=== PATIENT | male | born 1960 | race Caucasian/White ===

== ENCOUNTER 2020-04-17 08:18 | Observation (INO) ==
[2020-04-17 09:38] LABS: Basophils # 0.1 10*3/uL (0.0-0.2); Basophils % 0.7 % (0.0-0.8); Eosinophils # 0.1 10*3/uL (0.0-0.87); Eosinophils % 1.5 % (0.00-10.9); Hematocrit 42.5 VOL% (42.0-52.0); Hemoglobin 14.2 GM/DL (14.0-18.0); Immature Granulocytes % 0.4 %; Immature Granulocytes Absolute 0.03 #; Lymphocytes # 0.5 10*3/uL (1.4-4.0); Lymphocytes % 7.1 % (21.2-54.2); Mean Corpuscular HGB Conc 33.4 GM/DL (32-36); Mean Corpuscular Volume 95.1 FL (87-102); Mean Platelet Volume 10.3 FL (9.6-12.0); Neutrophils % 81.3 % (38.7-73.9); Platelet Count 267 T/CUMM (130-400); Red Blood Count 4.47 MC/CUMM (3.8-5.5); Red Cell Distribution Width 13.8 % (9.3-17.3); White Blood Count 7.6 T/CUMM (4-12)
[2020-04-17 09:58] LABS: Albumin 3.2 G/DL (3.4-5.0); Bilirubin,Total 0.5 MG/DL (0.2-1.0); Calcium 8.8 MG/DL (8.5-10.1); Osmolality,Calculated 277.7 MOS/KG (273-304)
[2020-04-17] MEDS ORDERED: MORPHINE 4 MG/1 ML VIAL IV STA ×2 (11:02→11:40)
[2020-04-17] MEDS ORDERED: SODIUM CHLORIDE 0.9% 1,000 ML IV STA (11:15)
[2020-04-17] MEDS ORDERED: THIAMINE 200 MG/2 ML VIAL IV STA (11:19)
[2020-04-17 11:29] LABS: Apearance,Urine CLEAR (Clear); Bilirubin,Urine Negative (Negative); Blood, Urine Negative (Negative); Glucose,Urine (UA) Negative (Negative); Ketones,Urine Negative (Negative); Mucus,Urine Occasional /LPF (Occasional); Nitrite,Urine Negative (Negative); Protein,Urine Negative; RBC,Urine <1 /HPF (0-4); Urine Color Yellow (Yellow); Urine Specific Gravity 1.015 (1.001-1.035); Urine Urobilinogen < 2.0 EU/DL (0.2-1.0); WBC,Urine <1 /HPF (0-6)
[2020-04-17] MEDS ORDERED: DEXTROSE 50% 25 GM/50 ML VIAL IV PRN (11:53)
[2020-04-17] MEDS ORDERED: ONDANSETRON 4 MG/2 ML VIAL IV PRN (11:53)
[2020-04-17] MEDS ORDERED: NICOTINE 21 MG/24 HR PATCH TRANSDERM PRN (11:53)
[2020-04-17] MEDS ORDERED: GLUCAGON 1 MG VIAL IM PRN (11:53)
[2020-04-17] MEDS ORDERED: cefTRIAXone 1,000 MG in SYRINGE 1 EACH IV SCH (12:30)
[2020-04-17 12:32] LABS: Risk Ratio 12.71; VLDL CHOLESTEROL 41.4 MG/DL
[2020-04-17] MEDS: MORPHINE 4 MG/1 ML VIAL IV PRN ×2 (14:40→18:25)
[2020-04-17] MEDS: LORazepam 2 MG/1 ML VIAL IV PRN (16:42)
[2020-04-17] MEDS: THIAMINE INJ 100 MG, FOLIC ACID INJ 1 MG, MULTIVITAMIN INJ 10 ML in SODIUM CHLORIDE 0.9... IV SCH (16:55)
[2020-04-17] MEDS: LACTATED RINGERS 1,000 ML IV SCH ×2 (17:22→21:07)
[2020-04-17] MEDS ORDERED: LORazepam 2 MG/1 ML VIAL IV PRN (18:39)
[2020-04-17] MEDS ORDERED: hydrALAZINE 20 MG/1 ML VIAL IV PRN (18:39)
[2020-04-17] MEDS ORDERED: diphenhydrAMINE 50 MG/1 ML VIAL IV PRN (18:40)
[2020-04-17] MEDS: PANTOPRAZOLE 40 MG VIAL IV SCH ×2 (18:43→21:39)
[2020-04-17] MEDS ORDERED: ACETAMINOPHEN 325 MG TABLET PO PRN (18:53)
[2020-04-17] MEDS: SULFAMETHOX/TRIMETHOPRIM 800-160 MG TABLET PO SCH (21:37)
[2020-04-17] MEDS: PHENYTOIN ER 100 MG CAPSULE PO SCH (21:37)
[2020-04-17] MEDS: ENOXAPARIN 40 MG/0.4 ML SYRINGE SUBCUT SCH (21:39)
[2020-04-18] MEDS: METOPROLOL TARTRATE 5 MG/5 ML VIAL IV SCH ×2 (00:37→05:46)
[2020-04-18] MEDS: LACTATED RINGERS 1,000 ML IV SCH ×2 (03:05→10:10)
[2020-04-18 05:56] LABS: Apearance,Urine CLEAR (Clear); Bilirubin,Urine Negative (Negative); Blood, Urine Negative (Negative); Glucose,Urine (UA) Negative (Negative); Ketones,Urine Negative (Negative); Mucus,Urine Occasional /LPF (Occasional); Nitrite,Urine Negative (Negative); Protein,Urine Negative; RBC,Urine <1 /HPF (0-4); Urine Color Amber (Yellow); Urine Specific Gravity 1.015 (1.001-1.035); Urine Urobilinogen < 2.0 EU/DL (0.2-1.0); WBC,Urine <1 /HPF (0-6)
[2020-04-18 06:05] LABS: Basophils # 0.1 10*3/uL (0.0-0.2); Basophils % 0.5 % (0.0-0.8); Eosinophils % 0.2 % (0.00-10.9); Hemoglobin 11.9 GM/DL (14.0-18.0); Immature Granulocytes % 0.5 %; Immature Granulocytes Absolute 0.06 #; Lymphocytes # 0.9 10*3/uL (1.4-4.0); Mean Corpuscular HGB Conc 33.1 GM/DL (32-36); Mean Platelet Volume 11.1 FL (9.6-12.0); Monocytes % 7.5 % (1.7-12.7); Neutrophils % 84.3 % (38.7-73.9); Platelet Count 225 T/CUMM (130-400); Red Blood Count 3.75 MC/CUMM (3.8-5.5); Red Cell Distribution Width 14.2 % (9.3-17.3); White Blood Count 12.6 T/CUMM (4-12)
[2020-04-18 06:32] LABS: Hypochromasia 1+; Microcytosis 1+; Platelet Estimate Adequate
[2020-04-18 06:49] LABS: Albumin 2.5 G/DL (3.4-5.0); Bilirubin,Total 1.4 MG/DL (0.2-1.0); Calcium 8.3 MG/DL (8.5-10.1); Osmolality,Calculated 274.8 MOS/KG (273-304); Total Protein 7.1 G/DL (6.4-8.3)
[2020-04-18] MEDS ORDERED: MAGNESIUM CITRATE 300 ML BOTTLE PO ONE (08:05)
[2020-04-18] MEDS: SULFAMETHOX/TRIMETHOPRIM 800-160 MG TABLET PO SCH (10:10)
[2020-04-18] MEDS: PANTOPRAZOLE 40 MG VIAL IV SCH ×2 (10:11→20:36)
[2020-04-18] MEDS: LEVOFLOXACIN INJ 750 MG in PREMIX 1 EACH IV SCH (12:09)
[2020-04-18] MEDS: METOPROLOL TARTRATE 25 MG TABLET PO SCH ×2 (12:09→20:36)
[2020-04-18] MEDS: MORPHINE 4 MG/1 ML VIAL IV PRN ×3 (12:20→22:43)
[2020-04-18] MEDS: BACITRACIN OINT 0.9 GM PACK TOP SCH (16:02)
[2020-04-18] MEDS: THIAMINE INJ 100 MG, FOLIC ACID INJ 1 MG, MULTIVITAMIN INJ 10 ML in SODIUM CHLORIDE 0.9... IV SCH (20:35)
[2020-04-18] MEDS: PHENYTOIN ER 100 MG CAPSULE PO SCH (20:36)
[2020-04-18] MEDS: ENOXAPARIN 40 MG/0.4 ML SYRINGE SUBCUT SCH (20:39)
[2020-04-19] MEDS: LORazepam 2 MG/1 ML VIAL IV PRN (01:33)
[2020-04-19] MEDS: MORPHINE 4 MG/1 ML VIAL IV PRN ×2 (02:37→06:35)
[2020-04-19 06:36] LABS: Basophils # 0.1 10*3/uL (0.0-0.2); Basophils % 0.8 % (0.0-0.8); Eosinophils # 0.2 10*3/uL (0.0-0.87); Eosinophils % 2.2 % (0.00-10.9); Hematocrit 37.8 VOL% (42.0-52.0); Hemoglobin 12.1 GM/DL (14.0-18.0); Immature Granulocytes % 0.4 %; Immature Granulocytes Absolute 0.03 #; Lymphocytes # 1.3 10*3/uL (1.4-4.0); Lymphocytes % 15.4 % (21.2-54.2); Mean Corpuscular Volume 97.7 FL (87-102); Mean Platelet Volume 10.6 FL (9.6-12.0); Monocytes % 11.7 % (1.7-12.7); Neutrophils % 69.5 % (38.7-73.9); Platelet Count 240 T/CUMM (130-400); Red Blood Count 3.87 MC/CUMM (3.8-5.5); Red Cell Distribution Width 13.9 % (9.3-17.3); White Blood Count 8.4 T/CUMM (4-12)
[2020-04-19 06:57] LABS: Calcium 7.9 MG/DL (8.5-10.1); Osmolality,Calculated 272.8 MOS/KG (273-304)
[2020-04-19] MEDS ORDERED: ASPIRIN CHEW 81 MG TABLET PO SCH (09:00)
[2020-04-19] MEDS: LACTATED RINGERS 1,000 ML IV SCH ×3 (09:16→11:21)
[2020-04-19] MEDS: PANTOPRAZOLE 40 MG VIAL IV SCH (09:18)
[2020-04-19] MEDS: METOPROLOL TARTRATE 25 MG TABLET PO SCH (09:18)
[2020-04-19] MEDS: BACITRACIN OINT 0.9 GM PACK TOP SCH (09:18)
[2020-04-19] MEDS: LEVOFLOXACIN INJ 750 MG in PREMIX 1 EACH IV SCH (11:22)
[2020-04-19 12:03] VITALS: BP 155/77
[2020-04-19] MEDS ORDERED: PANTOPRAZOLE 40 MG TABLET PO SCH (21:00)
== END 2020-04-19 14:43 | disposition home or self-care (01) ==
LOC: N.EDINP 08:18 → N.ED 08:18 → N.3E 15:20
PROVIDERS: ADMIT Internal Medicine; ATTEND Internal Medicine

== ENCOUNTER 2020-04-20 21:20 | Observation (INO) ==
[2020-04-20] MEDS ORDERED: METOCLOPRAMIDE 10 MG/2 ML VIAL IV STA (21:38)
[2020-04-20] MEDS ORDERED: SODIUM CHLORIDE 0.9% 500 ML IV STA (21:38)
[2020-04-20] MEDS ORDERED: ONDANSETRON 4 MG/2 ML VIAL IV STA (21:38)
[2020-04-20] MEDS ORDERED: PANTOPRAZOLE 40 MG VIAL IV STA (21:38)
[2020-04-20 21:48] LABS: Basophils % 0.6 % (0.0-0.8); Eosinophils # 0.1 10*3/uL (0.0-0.87); Hemoglobin 13.5 GM/DL (14.0-18.0); Immature Granulocytes % 0.5 %; Immature Granulocytes Absolute 0.03 #; Lymphocytes # 1.6 10*3/uL (1.4-4.0); Mean Corpuscular HGB Conc 32.9 GM/DL (32-36); Mean Corpuscular Volume 94.9 FL (87-102); Mean Platelet Volume 10.4 FL (9.6-12.0); Monocytes % 10.4 % (1.7-12.7); Neutrophils % 61.5 % (38.7-73.9); Platelet Count 351 T/CUMM (130-400); Red Blood Count 4.32 MC/CUMM (3.8-5.5); Red Cell Distribution Width 13.4 % (9.3-17.3); White Blood Count 6.4 T/CUMM (4-12)
[2020-04-20 22:14] LABS: Alanine Aminotransferase 49 U/L (16-61); Alkaline Phosphatase 168 U/L (45-117); Amylase 35 U/L (25-115); Aspartate Amino Transferase 45 U/L (0-37); Blood Urea Nitrogen 12 MG/DL (7-18); Calcium 8.7 MG/DL (8.5-10.1); Estimated Glom Filtration Rate 109 ML/MIN; Glucose 102 MG/DL (74-106); Osmolality,Calculated 272.8 MOS/KG (273-304); Total Protein 8.3 G/DL (6.4-8.3); Troponin I < 0.015 NG/ML (0.00-0.045)
[2020-04-20] MEDS ORDERED: DICYCLOMINE 20 MG/2 ML AMP IM ONE (22:20)
[2020-04-20] MEDS ORDERED: PHENYTOIN INJ 1,000 MG in SODIUM CHLORIDE 0.9% 100 ML IV STA (22:40)
[2020-04-20] MEDS ORDERED: PHENYTOIN 250 MG/5 ML VIAL IV ONE (23:02)
[2020-04-20 23:04] LABS: Apearance,Urine CLEAR (Clear); Bilirubin,Urine Negative (Negative); Blood, Urine Negative (Negative); Glucose,Urine (UA) Negative (Negative); Hyaline Casts,Urine 1 /LPF (0-3); Ketones,Urine Negative (Negative); Mucus,Urine Occasional /LPF (Occasional); Nitrite,Urine Negative (Negative); Protein,Urine Negative; RBC,Urine 1 /HPF (0-4); Urine Color Yellow (Yellow); Urine Specific Gravity 1.019 (1.001-1.035); Urine Urobilinogen < 2.0 EU/DL (0.2-1.0)
[2020-04-20] MEDS ORDERED: fentaNYL 100 MCG/2 ML VIAL IV STA (23:40)
[2020-04-21] MEDS ORDERED: guaiFENesin/DM ER 600-30 MG TABLET PO PRN (00:06)
[2020-04-21] MEDS ORDERED: NICOTINE 21 MG/24 HR PATCH TRANSDERM PRN (00:06)
[2020-04-21] MEDS ORDERED: hydrALAZINE 20 MG/1 ML VIAL IV PRN (00:06)
[2020-04-21] MEDS ORDERED: PROMETHAZINE 25 MG/1 ML VIAL IM PRN (00:06)
[2020-04-21] MEDS ORDERED: ACETAMINOPHEN 325 MG TABLET PO PRN (00:06)
[2020-04-21] MEDS ORDERED: ZALEPLON 5 MG CAPSULE PO PRN (00:06)
[2020-04-21] MEDS ORDERED: ONDANSETRON 4 MG/2 ML VIAL IV PRN (00:06)
[2020-04-21] MEDS ORDERED: diphenhydrAMINE CAP 25 MG CAPSULE PO PRN (00:06)
[2020-04-21] MEDS ORDERED: GLUCAGON 1 MG VIAL IM PRN (00:06)
[2020-04-21] MEDS ORDERED: DEXTROSE 50% 25 GM/50 ML VIAL IV PRN (00:06)
[2020-04-21] MEDS ORDERED: SODIUM CHLORIDE 0.9% 1,000 ML IV SCH (00:30)
[2020-04-21] MEDS: MORPHINE 4 MG/1 ML VIAL IV PRN ×2 (01:36→09:09)
[2020-04-21 05:34] LABS: Basophils # 0.1 10*3/uL (0.0-0.2); Eosinophils # 0.2 10*3/uL (0.0-0.87); Eosinophils % 2.1 % (0.00-10.9); Hematocrit 39.3 VOL% (42.0-52.0); Hemoglobin 13.2 GM/DL (14.0-18.0); Immature Granulocytes % 0.6 %; Immature Granulocytes Absolute 0.04 #; Lymphocytes # 1.7 10*3/uL (1.4-4.0); Lymphocytes % 23.8 % (21.2-54.2); Mean Corpuscular HGB Conc 33.6 GM/DL (32-36); Mean Corpuscular Volume 94.5 FL (87-102); Mean Platelet Volume 10.3 FL (9.6-12.0); Monocytes % 9.5 % (1.7-12.7); Platelet Count 331 T/CUMM (130-400); Red Blood Count 4.16 MC/CUMM (3.8-5.5); Red Cell Distribution Width 13.7 % (9.3-17.3); White Blood Count 7.2 T/CUMM (4-12)
[2020-04-21 05:52] LABS: Albumin 2.8 G/DL (3.4-5.0); Bilirubin,Total 0.9 MG/DL (0.2-1.0); Calcium 8.2 MG/DL (8.5-10.1); Osmolality,Calculated 274.7 MOS/KG (273-304); Total Protein 7.9 G/DL (6.4-8.3)
[2020-04-21] MEDS ORDERED: PHENYTOIN ER 100 MG CAPSULE PO SCH ×2 (09:00→21:00)
[2020-04-21] MEDS ORDERED: PANTOPRAZOLE 40 MG VIAL IV SCH (09:00)
[2020-04-21] MEDS ORDERED: DOCUSATE SODIUM 100 MG CAPSULE PO SCH (09:00)
[2020-04-21] MEDS ORDERED: MAGNESIUM CITRATE 300 ML BOTTLE PO ONE (09:16)
[2020-04-21] MEDS ORDERED: BACITRACIN OINT 0.9 GM PACK TOP PRN (12:06)
[2020-04-21] MEDS ORDERED: DOCUSATE SODIUM 100 MG CAPSULE PO PRN (12:49)
[2020-04-21 13:24] VITALS: BP 155/100
[2020-04-21] MEDS ORDERED: LEVOFLOXACIN 750 MG TABLET PO SCH (15:00)
[2020-04-21] MEDS ORDERED: METOPROLOL TARTRATE 25 MG TABLET PO SCH (21:00)
[2020-04-21] MEDS ORDERED: POLYETHYLENE GLYCOL POWDER 17 GM PACK PO SCH (21:00)
[2020-04-22] MEDS ORDERED: MULTIVITAMIN (CENTRUM) TABLET PO SCH (09:00)
[2020-04-22] MEDS ORDERED: ASPIRIN CHEW 81 MG TABLET PO SCH (09:00)
[2020-04-22] MEDS ORDERED: amLODIPine 10 MG TABLET PO SCH (09:00)
== END 2020-04-21 15:39 | disposition home or self-care (01) ==
LOC: EDBD → EDUNIT# → N.ED 21:20 → N.EDINP 21:20 → N.2E 04-21 02:20
PROVIDERS: ADMIT Internal Medicine; ATTEND Internal Medicine

== ENCOUNTER 2021-11-04 12:35 | Inpatient (IN) ==
[2021-11-04 14:38] LABS: Basophils # 0.1 10*3/uL (0.0-0.2); Basophils % 0.7 % (0.0-0.8); Eosinophils # 0.1 10*3/uL (0.0-0.87); Eosinophils % 1.9 % (0.00-10.9); Hematocrit 44.5 VOL% (42.0-52.0); Hemoglobin 14.9 GM/DL (14.0-18.0); Immature Granulocytes % 0.7 %; Immature Granulocytes Absolute 0.05 #; Lymphocytes # 0.9 10*3/uL (1.4-4.0); Lymphocytes % 13.9 % (21.2-54.2); Mean Corpuscular HGB Conc 33.5 GM/DL (32-36); Mean Corpuscular Volume 93.3 FL (87-102); Mean Platelet Volume 9.7 FL (9.6-12.0); Monocytes % 9.5 % (1.7-12.7); Neutrophils % 73.3 % (38.7-73.9); Platelet Count 248 T/CUMM (130-400); Red Blood Count 4.77 MC/CUMM (3.8-5.5); Red Cell Distribution Width 13.5 % (9.3-17.3); White Blood Count 6.7 T/CUMM (4-12)
[2021-11-04 14:50] LABS: ABG Base Excess -12.6 MMOL/L (-2.5-2.5); ABG HCO3 14.9 MMOL/L (20-26); ABG Oxygen Saturation 97.3 % (95-100); ABG PCO2 25.8 MM HG (35-48); ABG PH 7.295 (7.35-7.45); ABG PO2 95.5 MM HG (80-95); ABG TCO2 10.9 MMOL/L (23-27)
[2021-11-04 15:11] LABS: Albumin 2.9 G/DL (3.4-5.0); Bilirubin,Total 0.6 MG/DL (0.20-1.00); Osmolality,Calculated 281.5 MOS/KG (273-304); Total Protein 9.2 G/DL (6.4-8.2)
[2021-11-04] MEDS ORDERED: INSULIN REGULAR 100 UNIT/ML IV STA (15:20)
[2021-11-04] MEDS ORDERED: SODIUM CHLORIDE 0.9% 2,000 ML IV STA (15:20)
[2021-11-04] MEDS ORDERED: DEXTROSE 10% 250 ML BAG IV PRN (16:03)
[2021-11-04] MEDS ORDERED: ALBUTEROL 2.5 MG/3 ML NEB RESP TX PRN (16:03)
[2021-11-04] MEDS ORDERED: ONDANSETRON 4 MG/2 ML VIAL IV PRN (16:03)
[2021-11-04] MEDS ORDERED: GLUCAGON 1 MG VIAL IM PRN (16:03)
[2021-11-04] MEDS ORDERED: ACETAMINOPHEN 325 MG TABLET PO PRN (16:03)
[2021-11-04] MEDS: INSULIN GLARGINE 100 UNIT/ML SUBCUT SCH (16:35)
[2021-11-04] MEDS: LACTATED RINGERS 1,000 ML IV SCH ×3 (16:35→18:42)
[2021-11-04 17:09] LABS: Calcium 7.9 MG/DL (8.5-10.1); Osmolality,Calculated 280.8 MOS/KG (273-304); Potassium 4.6 MMOL/L (3.5-5.1)
[2021-11-04] MEDS: PANTOPRAZOLE 40 MG VIAL IV SCH (18:04)
[2021-11-04] MEDS: INSULIN REGULAR 100 UNIT/ML SUBCUT SCH ×3 (18:14→21:33)
[2021-11-04] MEDS ORDERED: LACTATED RINGERS 1,000 ML IV SCH (20:30)
[2021-11-04] MEDS: PHENYTOIN ER 100 MG CAPSULE PO SCH (21:33)
[2021-11-04] MEDS: ENOXAPARIN 40 MG/0.4 ML SYRINGE SUBCUT SCH (21:34)
[2021-11-04 22:14] LABS: Calcium 7.7 MG/DL (8.5-10.1); Osmolality,Calculated 277.5 MOS/KG (273-304); Potassium 4.1 MMOL/L (3.5-5.1)
[2021-11-05] MEDS: LACTATED RINGERS 1,000 ML IV SCH ×3 (01:53→15:00)
[2021-11-05] MEDS: INSULIN REGULAR 100 UNIT/ML SUBCUT SCH ×6 (02:22→22:37)
[2021-11-05 05:15] LABS: Basophils % 0.3 % (0.0-0.8); Eosinophils # 0.2 10*3/uL (0.0-0.87); Eosinophils % 3.7 % (0.00-10.9); Hematocrit 32.8 VOL% (42.0-52.0); Immature Granulocytes % 0.5 %; Immature Granulocytes Absolute 0.03 #; Lymphocytes # 1.4 10*3/uL (1.4-4.0); Lymphocytes % 23.9 % (21.2-54.2); Mean Corpuscular HGB Conc 35.1 GM/DL (32-36); Mean Corpuscular Volume 91.1 FL (87-102); Mean Platelet Volume 9.9 FL (9.6-12.0); Monocytes % 11.3 % (1.7-12.7); Neutrophils % 60.3 % (38.7-73.9); Red Cell Distribution Width 13.5 % (9.3-17.3); White Blood Count 5.7 T/CUMM (4-12)
[2021-11-05 05:20] LABS: Calcium 7.8 MG/DL (8.5-10.1); Osmolality,Calculated 265.4 MOS/KG (273-304); Potassium 3.1 MMOL/L (3.5-5.1)
[2021-11-05 05:27] LABS: Hemoglobin 11.5 GM/DL (14.0-18.0); Platelet Count 187 T/CUMM (130-400)
[2021-11-05] MEDS: POTASSIUM CHLORIDE 20 MEQ TABLET PO PRN (06:11)
[2021-11-05] MEDS: amLODIPine 10 MG TABLET PO SCH (08:13)
[2021-11-05] MEDS: ASPIRIN 325 MG TABLET PO SCH (08:13)
[2021-11-05] MEDS: INSULIN GLARGINE 100 UNIT/ML SUBCUT SCH (08:14)
[2021-11-05] MEDS: POTASSIUM CHLORIDE 20 MEQ TABLET PO SCH ×4 (08:14→20:30)
[2021-11-05] MEDS ORDERED: NICOTINE 21 MG/24 HR PATCH TRANSDERM PRN (11:50)
[2021-11-05] MEDS: PANTOPRAZOLE 40 MG VIAL IV SCH (16:50)
[2021-11-05] MEDS: ENOXAPARIN 40 MG/0.4 ML SYRINGE SUBCUT SCH (21:28)
[2021-11-05] MEDS: PHENYTOIN ER 100 MG CAPSULE PO SCH (21:28)
[2021-11-05 22:55] LABS: Bilirubin,Urine Negative (Negative); Blood, Urine Negative (Negative); Glucose,Urine (UA) >=500 mg/dL (Negative); Ketones,Urine 20 mg/dL (Negative); Mucus,Urine Occasional /LPF (Occasional); Nitrite,Urine Negative (Negative); Protein,Urine Negative; RBC,Urine 1 /HPF (0-4); Urine Appearance CLEAR (Clear); Urine Color Straw (Yellow); Urine Specific Gravity 1.022 (1.001-1.035); Urine Urobilinogen < 2.0 EU/DL (<2.0)
[2021-11-06] MEDS: LACTATED RINGERS 1,000 ML IV SCH ×4 (00:18→23:00)
[2021-11-06] MEDS: INSULIN REGULAR 100 UNIT/ML SUBCUT SCH ×6 (02:42→21:05)
[2021-11-06 04:56] LABS: Basophils % 0.4 % (0.0-0.8); Eosinophils # 0.2 10*3/uL (0.0-0.87); Eosinophils % 3.9 % (0.00-10.9); Hematocrit 32.6 VOL% (42.0-52.0); Hemoglobin 11.8 GM/DL (14.0-18.0); Immature Granulocytes % 0.7 %; Immature Granulocytes Absolute 0.03 #; Lymphocytes % 21.4 % (21.2-54.2); Mean Corpuscular HGB Conc 36.2 GM/DL (32-36); Mean Corpuscular Volume 90.1 FL (87-102); Mean Platelet Volume 9.6 FL (9.6-12.0); Monocytes % 12.2 % (1.7-12.7); Neutrophils % 61.4 % (38.7-73.9); Platelet Count 173 T/CUMM (130-400); Red Blood Count 3.62 MC/CUMM (3.8-5.5); Red Cell Distribution Width 13.5 % (9.3-17.3); White Blood Count 4.6 T/CUMM (4-12)
[2021-11-06 06:18] LABS: Calcium 7.1 MG/DL (8.5-10.1); Osmolality,Calculated 268.4 MOS/KG (273-304); Potassium 3.6 MMOL/L (3.5-5.1)
[2021-11-06 06:48] LABS: Risk Ratio 10.13; VLDL Cholesterol 326.8 MG/DL
[2021-11-06] MEDS ORDERED: MAGNESIUM SULF RIDER 2 GM/50 ML PREMIX IV PRN (07:33)
[2021-11-06] MEDS: amLODIPine 10 MG TABLET PO SCH (09:38)
[2021-11-06] MEDS: POTASSIUM CHLORIDE 20 MEQ TABLET PO PRN ×2 (09:38→11:45)
[2021-11-06] MEDS: ASPIRIN 325 MG TABLET PO SCH (09:38)
[2021-11-06] MEDS: INSULIN GLARGINE 100 UNIT/ML SUBCUT SCH (09:38)
[2021-11-06] MEDS ORDERED: POLYETHYLENE GLYCOL POWDER 17 GM PACK PO PRN (11:52)
[2021-11-06] MEDS ORDERED: PHENYTOIN INJ 500 MG in SODIUM CHLORIDE 0.9% 100 ML IV ONE (12:31)
[2021-11-06] MEDS ORDERED: LORazepam 2 MG/1 ML VIAL IV PRN (12:43)
[2021-11-06 13:16] LABS: % Iron Saturation 32.9 % (18-50); Ferritin 395.6 ng/mL (26-388)
[2021-11-06 13:28] LABS: Folate 9.08 NG/ML (5.38-24.0)
[2021-11-06] MEDS: DOCUSATE SODIUM 100 MG CAPSULE PO SCH ×2 (14:05→21:22)
[2021-11-06] MEDS ORDERED: diphenhydrAMINE CAP 25 MG CAPSULE PO ONE (14:48)
[2021-11-06] MEDS: metFORMIN 500 MG TABLET PO SCH (16:19)
[2021-11-06] MEDS: PANTOPRAZOLE 40 MG VIAL IV SCH (16:20)
[2021-11-06] MEDS: PHENYTOIN ER 100 MG CAPSULE PO SCH (21:22)
[2021-11-06] MEDS: LACTULOSE 20 GM/30 ML UDCUP PO PRN (21:22)
[2021-11-06] MEDS: ATORVASTATIN 20 MG TABLET PO SCH (21:22)
[2021-11-06] MEDS: ENOXAPARIN 40 MG/0.4 ML SYRINGE SUBCUT SCH (21:22)
[2021-11-07] MEDS: INSULIN REGULAR 100 UNIT/ML SUBCUT SCH ×6 (00:13→21:47)
[2021-11-07] MEDS: LACTATED RINGERS 1,000 ML IV SCH ×5 (05:40→23:10)
[2021-11-07 08:30] LABS: Calcium 8.5 MG/DL (8.5-10.1); Osmolality,Calculated 270.1 MOS/KG (273-304); Potassium 3.8 MMOL/L (3.5-5.1)
[2021-11-07] MEDS: metFORMIN 500 MG TABLET PO SCH ×2 (09:47→16:49)
[2021-11-07] MEDS: PHENYTOIN ER 100 MG CAPSULE PO SCH ×3 (09:47→21:46)
[2021-11-07] MEDS: LACTULOSE 20 GM/30 ML UDCUP PO PRN (09:47)
[2021-11-07] MEDS: ASPIRIN 325 MG TABLET PO SCH (09:47)
[2021-11-07] MEDS: DOCUSATE SODIUM 100 MG CAPSULE PO SCH ×2 (09:47→21:47)
[2021-11-07] MEDS: amLODIPine 10 MG TABLET PO SCH (09:47)
[2021-11-07] MEDS: POTASSIUM CHLORIDE 20 MEQ TABLET PO PRN (09:47)
[2021-11-07] MEDS ORDERED: diphenhydrAMINE 2% CREAM 28 GM TUBE TOP PRN (12:14)
[2021-11-07] MEDS ORDERED: diphenhydrAMINE CAP 25 MG CAPSULE PO PRN (12:14)
[2021-11-07] MEDS: MOISTURIZING CREAM (EUCERIN) 106 GM JAR TOP PRN (16:40)
[2021-11-07] MEDS: PANTOPRAZOLE 40 MG VIAL IV SCH (16:48)
[2021-11-07] MEDS ORDERED: PHENYTOIN ER 100 MG CAPSULE PO SCH (21:00)
[2021-11-07] MEDS: ATORVASTATIN 20 MG TABLET PO SCH (21:46)
[2021-11-08] MEDS: INSULIN REGULAR 100 UNIT/ML SUBCUT SCH ×4 (00:03→13:20)
[2021-11-08] MEDS: LACTATED RINGERS 1,000 ML IV SCH ×2 (05:58→14:56)
[2021-11-08] MEDS: PHENYTOIN ER 100 MG CAPSULE PO SCH (08:52)
[2021-11-08] MEDS: metFORMIN 500 MG TABLET PO SCH (08:52)
[2021-11-08] MEDS: ASPIRIN 325 MG TABLET PO SCH (08:53)
[2021-11-08] MEDS: amLODIPine 10 MG TABLET PO SCH (08:53)
[2021-11-08] MEDS: DOCUSATE SODIUM 100 MG CAPSULE PO SCH (08:53)
[2021-11-08] MEDS: ENOXAPARIN 40 MG/0.4 ML SYRINGE SUBCUT SCH (08:54)
[2021-11-08] MEDS: MOISTURIZING CREAM (EUCERIN) 106 GM JAR TOP PRN (08:55)
[2021-11-08 12:14] VITALS: BP 136/85
[2021-11-08] MEDS: LACTULOSE 20 GM/30 ML UDCUP PO PRN (13:19)
[2021-11-09] MEDS ORDERED: PANTOPRAZOLE 40 MG TABLET PO SCH (06:30)
== END 2021-11-08 14:43 | disposition home or self-care (01) | DRG 639 ==
LOC: N.ED 12:35 → SUATTDRO 16:03 → N.EDINP 16:03 → N.ICU 19:00 → N.5E 11-07 18:52
PROVIDERS: ADMIT Internal Medicine; ATTEND Internal Medicine